=== PATIENT | male | born 1965 | race Caucasian/White ===

== ENCOUNTER 2017-04-28 08:29 | Emergency (ER) | payer OTHER ==
[2017-04-28] MEDS ORDERED: Sodium Chloride 0.9% 1,000 ML IV ONE (08:36)
[2017-04-28 08:41] VITALS: BP 115/74
[2017-04-28 09:01] LABS: CHLORIDE,CL 91 mmol/L (101-111); SODIUM,NA 133 mmol/L (135-145)
--- NOTE | 2017-04-28 09:01 | CR ---
Clinic history: 51-year-old male chest pain. Interpretation: Upright AP portable chest unremarkable i.e. negative. Normal cardiac silhouette and bony thorax. (External sonogram technician leads) No signs of heart failure lung mass hilar lymphadenopathy or focal lobar pneumonia. No atelectasis/collapse. No pneumothorax.
[2017-04-28] MEDS ORDERED: Sodium Chloride 0.9% 10 ML Syringe IV PRN (09:58)
--- NOTE | 2017-04-28 10:17 | EDM.PDOC ---
ED HPI GENERAL MEDICAL PROBLEM - General Chief Complaint: Syncope Stated Complaint: AJAY EMERY FROM [facility] Time Seen by Provider: 04/28/17 08:35 Source of Information: Reports: Patient, Old Records History Limitations: Reports: No Limitations - History of Present Illness INITIAL COMMENTS - FREE TEXT/NARRATIVE: Verbal report for nurses at the [facility] states he was being seen by a CREDIT CORRESPONDENCE CLERK in the [place] clinic today when he suddenly became unresponsive and fell to the floor. Nurse states he was apneic but maintained a weak pulse. The patient then aroused spontaneously. Patient tried to stand at that time when he again slumped over and became unresponsive. A code blue was called and patient was transported to the ER. Patient was fully responsive when arriving in the ER. See note from [place] nurse. Patient denies any recent illness, fever, chills. He states he did not eat breakfast this morning. The patient admits to drinking alcohol, but has not had any alcohol for 2 days. He denies any pain at this time. Denies chest pain and sob. Onset: Today, Sudden - Related Data Allergies Allergy/AdvReac Type Severity Reaction Status Date / Time No Known Allergies Allergy Verified 04/28/17 08:35 Home Meds: Home Meds Aspirin [Kirstie Chewable] 81 mg PO DAILY 10/19/13 [History] Atenolol [Tenormin] 100 mg PO DAILY 10/19/13 [History] Hydrochlorothiazide 25 mg PO DAILY 10/19/13 [History] Lisinopril 40 mg PO BID 10/19/13 [History] atorvaSTATin [Lipitor] 20 mg PO DAILY 10/19/13 [History] amLODIPine [Norvasc] 5 mg PO DAILY 12/28/16 [History] traZODone 50 mg PO BEDTIME 12/28/16 [History] Past Medical History Cardiovascular History: Reports: High Cholesterol, Hypertension Psychiatric History: Reports: Addiction - Past Surgical History Musculoskeletal Surgical History: Reports: Other (See Below) Other Musculoskeletal Surgeries/Procedures:: left hand surgery Social & Family History - Family History Family Medical History: Noncontributory - Tobacco Use Smoking Status *Q: Current Every Day Smoker Years of Tobacco use: 37 Packs/Tins Daily: 0.5 Second Hand Smoke Exposure: Yes - Caffeine Use Caffeine Use: Reports: Coffee - Alcohol Use Days Per Week of Alcohol Use: 1 Number of Drinks Per Day: 4 Total Drinks Per Week: 4 - Recreational Drug Use Recreational Drug Use: No ED ROS GENERAL - Review of Systems Review Of Systems: See Below Constitutional: Reports: Weakness, Diaphoresis HEENT: Reports: No Symptoms Respiratory: Reports: No Symptoms, Other ([place] nurse states apneic during event) Cardiovascular: Reports: Lightheadedness, Syncope Endocrine: Reports: No Symptoms GI/Abdominal: Reports: No Symptoms : Reports: No Symptoms Musculoskeletal: Reports: No Symptoms Skin: Reports: No Symptoms Neurological: Reports: No Symptoms Psychiatric: Reports: No Symptoms Hematologic/Lymphatic: Reports: No Symptoms Immunologic: Reports: No Symptoms - Physical Exam Exam: See Below Exam Limited By: No Limitations General Appearance: Alert, WD/WN, No Apparent Distress Eye Exam: Bilateral Eye: Normal Inspection, PERRL Ears: Normal External Exam Nose: Normal Inspection Throat/Mouth: Normal Inspection Head Exam: Atraumatic, Normocephalic Neck: Normal Inspection, Supple, Non-Tender, Full Range of Motion Respiratory/Chest: No Respiratory Distress, Lungs Clear, Normal Breath Sounds, No Accessory Muscle Use, Chest Non-Tender Cardiovascular: Normal Peripheral Pulses, Regular Rate, Rhythm, No Edema, No Gallop, No JVD, No Murmur, No Rub GI/Abdominal: Normal Bowel Sounds, Soft, Non-Tender, No Organomegaly, No Distention, No Abnormal Bruit (Male) Exam: Deferred Rectal (Males) Exam: Deferred Neuro Exam (Abbreviated): Alert, Oriented, CN II-XII Intact, Normal Cognition Back Exam: Normal Inspection, Full Range of Motion Extremities: Normal Inspection, Normal Range of Motion, Non-Tender, No Pedal Edema, Normal Capillary Refill Psychiatric: Normal Affect, Normal Mood Skin Exam: Warm, Dry, Intact, Normal Color, No Rash EKG INTERPRETATION EKG Date: 04/28/17 Rhythm: NSR Rate (Beats/Min): 52 [place]: Normal P-Wave: Present QRS: Normal ST-T: Normal QT: Normal Comparison: NA - No Prior EKG Course - Vital Signs Last Recorded V/S: Last Vital Signs Temp 96.8 F 04/28/17 08:37 Pulse 50 L 04/28/17 08:37 Resp 16 04/28/17 08:37 BP 115/74 04/28/17 08:37 Pulse Ox 97 04/28/17 08:37 Orthostatic Blood Pressure [ 97/68 Standing] Orthostatic Blood Pressure [ 105/77 Sitting] Orthostatic Blood Pressure [ 115/74 Supine] - Orders/Labs/Meds Orders: Active Orders 24 hr Category Date Time Status EKG Documentation Completion [RC] STAT Care 04/28/17 08:33 Active Orthostatic Vital Signs [RC] ASDIRECTED Care 04/28/17 08:34 Active Labs: Laboratory Tests 04/28/17 04/28/17 04/28/17 Range/Units 08:31 08:36 08:36 WBC (5.0-10.0) 10^3/uL RBC (4.6-6.2) 10^6/uL Hgb (14.0-18.0) g/dL Hct (40.0-54.0) % MCV (80-100) fL MCH (27.0-34.0) pg MCHC (33.0-35.0) g/dL Plt Count (150-450) 10^3/uL Neut % (Auto) (42.2-75.2) % Lymph % (Auto) (20.5-50.1) % [place] % (Auto) (2-8) % Eos % (Auto) (1.0-3.0) % Baso % (Auto) (0.0-1.0) % Sodium 133 L (135-145) mmol/L Potassium 3.8 (3.6-5.0) mmol/L Chloride 91 L (101-111) mmol/L Carbon Dioxide 25.0 (21.0-31.0) mmol/L Anion Gap 20.8 BUN 24 H (7-18) mg/dL Creatinine 1.4 H (0.6-1.3) mg/dL Est Cr Clr Drug Dosing TNP Estimated GFR (MDRD) 53 BUN/Creatinine Ratio 17.14 Glucose 176 H (74-105) mg/dL Calcium 9.5 (8.4-10.2) mg/dl Total Bilirubin 1.2 H (0.2-1.0) mg/dL AST 31 (10-42) IU/L ALT 25 (10-60) IU/L Alkaline Phosphatase 66 (42-121) IU/L Ammonia < 9 L (11-35) umol/L Creatine Kinase 76 (26-174) IU/L Creatine Kinase Index 1.3 (0-2.4) % CK-MB (CK-2) 1.00 (0.4-4.7) ng/mL Troponin I < 0.02 (0.00-0.02) ng/ml Total Protein 7.3 (6.7-8.2) g/dl Albumin 4.2 (3.2-5.5) g/dl Globulin 3.1 Albumin/Globulin Ratio 1.35 Urine Color (YELLOW) Urine Appearance (CLEAR) Urine pH (5.0-9.0) Ur Specific [place] (1.005-1.030) Urine Protein (NEGATIVE) Urine Glucose (UA) (NEGATIVE) Urine Ketones (NEGATIVE) Urine Occult Blood (NEGATIVE) Urine Nitrite (NEGATIVE) Urine Bilirubin (NEGATIVE) Urine Urobilinogen (0.2-1.0) mg/dL Ur Leukocyte Esterase (NEGATIVE) Urine RBC /HPF Urine WBC (0-5/HPF) /HPF Ur Epithelial Cells /HPF Urine Bacteria (0-FEW/HPF) /HPF Urine Mucus /LPF Urine Opiates Screen (NEGATIVE) Ur Oxycodone Screen (NEGATIVE) Urine Methadone Screen (NEGATIVE) Ur Barbiturates Screen (NEGATIVE) U Tricyclic Antidepress (NEGATIVE) Ur Phencyclidine Scrn (NEGATIVE) Ur Amphetamine Screen (NEGATIVE) U Methamphetamines Scrn (NEGATIVE) Urine MDMA Screen (NEGATIVE) U Benzodiazepines Scrn (NEGATIVE) Urine Cocaine Screen (NEGATIVE) U Marijuana (THC) Screen (NEGATIVE) Ethyl Alcohol mg/dL 04/28/17 04/28/17 04/28/17 Range/Units 08:36 08:36 09:31 WBC 9.9 (5.0-10.0) 10^3/uL RBC 5.06 (4.6-6.2) 10^6/uL Hgb 16.7 (14.0-18.0) g/dL Hct 48.3 (40.0-54.0) % MCV 95.5 (80-100) fL MCH 33.0 (27.0-34.0) pg MCHC 34.6 (33.0-35.0) g/dL Plt Count 323 (150-450) 10^3/uL Neut % (Auto) 62.8 (42.2-75.2) % Lymph % (Auto) 26.3 (20.5-50.1) % [place] % (Auto) 8.0 (2-8) % Eos % (Auto) 1.7 (1.0-3.0) % Baso % (Auto) 1.2 H (0.0-1.0) % Sodium (135-145) mmol/L Potassium (3.6-5.0) mmol/L Chloride (101-111) mmol/L Carbon Dioxide (21.0-31.0) mmol/L Anion Gap BUN (7-18) mg/dL Creatinine (0.6-1.3) mg/dL Est Cr Clr Drug Dosing Estimated GFR (MDRD) BUN/Creatinine Ratio Glucose (74-105) mg/dL Calcium (8.4-10.2) mg/dl Total Bilirubin (0.2-1.0) mg/dL AST (10-42) IU/L ALT (10-60) IU/L Alkaline Phosphatase (42-121) IU/L Ammonia (11-35) umol/L Creatine Kinase (26-174) IU/L Creatine Kinase Index (0-2.4) % CK-MB (CK-2) (0.4-4.7) ng/mL Troponin I (0.00-0.02) ng/ml Total Protein (6.7-8.2) g/dl Albumin (3.2-5.5) g/dl Globulin Albumin/Globulin Ratio Urine Color (YELLOW) Urine Appearance (CLEAR) Urine pH (5.0-9.0) Ur Specific [place] (1.005-1.030) Urine Protein (NEGATIVE) Urine Glucose (UA) (NEGATIVE) Urine Ketones (NEGATIVE) Urine Occult Blood (NEGATIVE) Urine Nitrite (NEGATIVE) Urine Bilirubin (NEGATIVE) Urine Urobilinogen (0.2-1.0) mg/dL Ur Leukocyte Esterase (NEGATIVE) Urine RBC /HPF Urine WBC (0-5/HPF) /HPF Ur Epithelial Cells /HPF Urine Bacteria (0-FEW/HPF) /HPF Urine Mucus /LPF Urine Opiates Screen Negative (NEGATIVE) Ur Oxycodone Screen Negative (NEGATIVE) Urine Methadone Screen Negative (NEGATIVE) Ur Barbiturates Screen Negative (NEGATIVE) U Tricyclic Antidepress Negative (NEGATIVE) Ur Phencyclidine Scrn Negative (NEGATIVE) Ur Amphetamine Screen Negative (NEGATIVE) U Methamphetamines Scrn Negative (NEGATIVE) Urine MDMA Screen Negative (NEGATIVE) U Benzodiazepines Scrn Negative (NEGATIVE) Urine Cocaine Screen Negative (NEGATIVE) U Marijuana (THC) Screen Negative (NEGATIVE) Ethyl Alcohol < 5 mg/dL 04/28/17 Range/Units 09:31 WBC (5.0-10.0) 10^3/uL RBC (4.6-6.2) 10^6/uL Hgb (14.0-18.0) g/dL Hct (40.0-54.0) % MCV (80-100) fL MCH (27.0-34.0) pg MCHC (33.0-35.0) g/dL Plt Count (150-450) 10^3/uL Neut % (Auto) (42.2-75.2) % Lymph % (Auto) (20.5-50.1) % [place] % (Auto) (2-8) % Eos % (Auto) (1.0-3.0) % Baso % (Auto) (0.0-1.0) % Sodium (135-145) mmol/L Potassium (3.6-5.0) mmol/L Chloride (101-111) mmol/L Carbon Dioxide (21.0-31.0) mmol/L Anion Gap BUN (7-18) mg/dL Creatinine (0.6-1.3) mg/dL Est Cr Clr Drug Dosing Estimated GFR (MDRD) BUN/Creatinine Ratio Glucose (74-105) mg/dL Calcium (8.4-10.2) mg/dl Total Bilirubin (0.2-1.0) mg/dL AST (10-42) IU/L ALT (10-60) IU/L Alkaline Phosphatase (42-121) IU/L Ammonia (11-35) umol/L Creatine Kinase (26-174) IU/L Creatine Kinase Index (0-2.4) % CK-MB (CK-2) (0.4-4.7) ng/mL Troponin I (0.00-0.02) ng/ml Total Protein (6.7-8.2) g/dl Albumin (3.2-5.5) g/dl Globulin Albumin/Globulin Ratio Urine Color Yellow (YELLOW) Urine Appearance Clear (CLEAR) Urine pH 7.0 (5.0-9.0) Ur Specific [place] 1.015 (1.005-1.030) Urine Protein 30 H (NEGATIVE) Urine Glucose (UA) Negative (NEGATIVE) Urine Ketones Negative (NEGATIVE) Urine Occult Blood Negative (NEGATIVE) Urine Nitrite Negative (NEGATIVE) Urine Bilirubin Negative (NEGATIVE) Urine Urobilinogen 1.0 (0.2-1.0) mg/dL Ur Leukocyte Esterase Negative (NEGATIVE) Urine RBC 0-5 /HPF Urine WBC 0-5 (0-5/HPF) /HPF Ur Epithelial Cells Rare /HPF Urine Bacteria Occasional (0-FEW/HPF) /HPF Urine Mucus Many H /LPF Urine Opiates Screen (NEGATIVE) Ur Oxycodone Screen (NEGATIVE) Urine Methadone Screen (NEGATIVE) Ur Barbiturates Screen (NEGATIVE) U Tricyclic Antidepress (NEGATIVE) Ur Phencyclidine Scrn (NEGATIVE) Ur Amphetamine Screen (NEGATIVE) U Methamphetamines Scrn (NEGATIVE) Urine MDMA Screen (NEGATIVE) U Benzodiazepines Scrn (NEGATIVE) Urine Cocaine Screen (NEGATIVE) U Marijuana (THC) Screen (NEGATIVE) Ethyl Alcohol mg/dL Meds: Medications Discontinued Medications Generic Name Dose Route Start Last Admin Trade Name Freq PRN Reason Stop Dose Admin Sodium Chloride 1,000 mls @ 999 mls/hr 04/28/17 08:36 04/28/17 08:53 Normal Saline IV 04/28/17 09:36 999 mls/hr .BOLUS ONE Administration Sodium Chloride 10 ml 04/28/17 09:58 04/28/17 09:58 Saline Flush IV 10 ml ASDIRECTED PRN Administration Keep Vein Open - Radiology Interpretation Free Text/Narrative:: Chest x ray: Negative/Unremarkable See Rad report - Re-Assessments/Exams Free Text/Narrative Re-Assessment/Exam: Being the patient is over the age of 48 and had 2-3 syncopal episodes in a short period of time, the patient was advised to be admitted overnight for observation. The patient is unwilling to be admitted to the hospital. The risks of discharging the patient were addressed with the patient and he stated understanding. He was advised to return to the ER with any lightheadedness, syncopal events, palpitations, chest pain, sob. The patient again states understanding. Patient was advised to follow up with his primary care provider. Departure - Departure Time of Disposition: 10:13 Disposition: Home, Self-Care 01 Condition: Good Clinical Impression: Dehydration Syncope Qualifiers: Syncope type: vasovagal syncope Qualified Code(s): R55 - Syncope and collapse - Discharge Information Instructions: Dehydration, Adult, [id number], Syncope, [id number] Referrals: PCP,Unobtain [Primary Care Provider] - Forms: ED Department Discharge Additional Instructions: [facility] at earliest available appointment. Drink plenty of water. - My Orders Last 24 Hours: My Active Orders 04/28/17 08:33 EKG Documentation Completion [RC] STAT 04/28/17 08:34 Orthostatic Vital Signs [RC] ASDIRECTED - Assessment/Plan Last 24 Hours: My Active Orders 04/28/17 08:33 EKG Documentation Completion [RC] STAT 04/28/17 08:34 Orthostatic Vital Signs [RC] ASDIRECTED
--- NOTE | 2017-05-01 13:16 | EKG ---
04/28/2017 - BRIDGET LANDIS - [facility] 12-lead EKG shows normal sinus rhythm with sinus bradycardia with heart rate of 51. No significant ST elevation or ST depression noted on this 12-lead EKG. Nonspecific ST-T wave changes noted on lead V5 and V6. [facility] /[id number]
== END 2017-04-28 10:23 | disposition home or self-care (01) ==
LOC: DL.ED 08:29
DX: R55 Syncope and collapse (principal); E86.0 Dehydration; E78.00 Pure hypercholesterolemia, unspecified; I10 Essential (primary) hypertension; F17.210 Nicotine dependence, cigarettes, uncomplicated; Z79.82 Long term (current) use of aspirin; Z79.899 Other long term (current) drug therapy
CPT/HCPCS: 36415; 71010; 80053; 80305; 81001; 82140; 82550; 82553; 84484; 85025; 93005; 96360; 99284; G0480; J7030; J7050